=== PATIENT | male | born 1995 | race Caucasian/White ===

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

== ENCOUNTER 2017-05-04 16:19 | Emergency (ER) | payer MEDICAID, OTHER ==
[2017-05-04] MEDS ORDERED: predniSONE TAB* 20 MG PO ONE (18:41)
[2017-05-04] MEDS ORDERED: Albuterol 2.5 MG/3 ML NEB.SOL* (0.083%) INH ONE (18:41)
[2017-05-04] MEDS ORDERED: Acetaminophen TAB* 325 MG PO ONE (18:41)
--- NOTE | 2017-05-04 18:53 | UC ---
Respiratory Complaint HPI - HPI Summary HPI Summary: pt is c/o cough, chest congestion, tight lungs and a blood streak in his sputum after coughing today. began with a sore throat and nasal congestion for 1 day then moved to his chest. has hx of asthma and using rescue and steroid inhalers with no relief. denies cp, fever - History of Current Complaint Chief Complaint: UCRespiratory Stated Complaint: ASTHMA/TIGHTNESS IN CHEST/COUGHING UP BLOOD Time Seen by Provider: 05/04/17 18:37 Hx Obtained From: Patient Onset/Duration: Gradual Onset Pain Intensity: 0 Alleviating Factors: Nothing Associated Signs And Symptoms: Positive: Dyspnea, Wheezing, Hemoptysis - Risk Factors Pulmonary Embolism Risk Factors: Negative Cardiac Risk Factors: Negative Pseudomonas Risk Factors: Negative Tuberculosis Risk Factors: Negative - Allergies/Home Medications Allergies/Adverse Reactions: Allergies Allergy/AdvReac Type Severity Reaction Status Date / Time cefdinir Allergy Rash Verified 05/04/17 17:11 Sulfa (Sulfonamide Allergy Hives Verified 05/04/17 17:11 Antibiotics) Home Medications: Home Medications Albuterol HFA INHALER* [Ventolin HFA Inhaler*] 2 puff INH Q4H PRN 05/04/17 [ History Confirmed 05/04/17] Budesonide Flexhaler 90 (NF) [Pulmicort Flexhaler 90 mcg/act (NF)] 2 puff QAM [History Confirmed 05/04/17] PMH/Surg Hx/FS Hx/Imm Hx Respiratory History: Asthma - Surgical History Surgical History: Yes Surgery Procedure, Year, and Place: RT EAR SURGERY IN JANUARY 2012. YOUNG CHILD- TUBES PLACED X 2 - Family History Known Family History: Positive: Cardiac Disease - Social History Occupation: Student Lives: With Family Alcohol Use: None Substance Use Type: None Smoking Status (MU): Never Smoked Tobacco Have You Smoked in the Last Year: No - Immunization History Vaccination Up to Date: Yes Review of Systems Constitutional: Negative Skin: Negative Eyes: Negative ENT: Sore Throat, Nasal Discharge Respiratory: Shortness Of Breath, Cough Cardiovascular: Negative Gastrointestinal: Negative Genitourinary: Negative Motor: Negative Neurovascular: Negative Musculoskeletal: Negative Neurological: Negative Psychological: Negative Is Patient Immunocompromised?: No All Other Systems Reviewed And Are Negative: Yes Physical Exam Triage Information Reviewed: Yes Appearance: Well-Appearing Vital Signs: Initial Vital Signs Temp 98.3 F 05/04/17 17:13 Pulse 77 05/04/17 17:13 Resp 16 05/04/17 17:13 BP 110/67 05/04/17 17:13 Pulse Ox 99 05/04/17 17:13 Vital Signs Reviewed: Yes Eye Exam: Normal ENT: Positive: Pharynx normal, TMs normal. Negative: Nasal congestion, Nasal drainage Respiratory: Positive: No respiratory distress, Decreased breath sounds, Wheezing Cardiovascular: Positive: RRR, No Murmur Abdomen Description: Positive: Nontender, No Organomegaly, Soft Bowel Sounds: Positive: Present Musculoskeletal: Positive: ROM Intact Neurological: Positive: Alert Psychological: Positive: Age Appropriate Behavior Skin Exam: Normal UC Diagnostic Evaluation - Laboratory O2 Sat by Pulse Oximetry: 99 - Radiology Xray Interpretation: No Acute Changes Radiology Interpretation Completed By: Radiologist Re-Evaluation - Re-Evaluation Second Eval Re-Evaluation Time: 07:10 Change: Improved - LUNGS CLEAR WITH GOOD AERATION AND PT FEELING MUCH BETTER. Respiratory Course/Dx - Course Course Of Treatment: NON TOXIC, CXR UNREMARKABLE. I THINK BLLOD STREAK FROM COUGH AND BRONCHITIS. EXAM C/W ASTHMA FLARE WELL. WILL TX ALBUTEROL PLUS PREDNISONE WITH CLOSE F/U. - Differential Dx/Diagnosis Provider Diagnoses: Asthma flare. Bronchitis. Discharge - Sign-Out/Discharge Documenting (check all that apply): Discharge - Discharge Plan Condition: Improved Disposition: HOME Prescriptions: Albuterol HFA INHALER* [Ventolin HFA Inhaler*] 2 puff INH Q4H PRN 30 Days #1 mdi PRN Reason: Sob/Wheezing predniSONE TAB* [Deltasone TAB*] 40 mg PO DAILY 3 Days #6 tab Patient Education Materials: Asthma (ED), Acute Bronchitis (ED) Referrals: Dolores Navarro MD [Primary Care Provider] - 5 Days - Billing Disposition and Condition Condition: IMPROVED Disposition: HOME
--- NOTE | 2017-05-04 19:08 | RAD ---
INDICATION: Hemoptysis COMPARISON: Most recent comparison chest x-rays dated April 14, 2010 TECHNIQUE: PA and lateral views of the chest were obtained. FINDINGS: The heart and mediastinum are normal in size and contour. The lungs are grossly clear. There is no evidence of large pleural effusion. Visualized bones are normal for the patient's age. There is no radiographic evidence of free air beneath the diaphragm IMPRESSION: No radiographic evidence of acute cardiopulmonary disease.
[2017-05-04 19:28] VITALS: BP 124/63
== END 2017-05-04 19:27 | disposition home or self-care (01) ==
LOC: UCCORT 16:19
DX: J45.909 Unspecified asthma, uncomplicated (principal); Z88.2 Allergy status to sulfonamides; Z88.8 Allergy status to other drugs, medicaments and biological substances
CPT/HCPCS: 71046; 99213; A9270-GY; G0463; J7512

== ENCOUNTER → 2017-05-24 11:41 | Emergency (ER) | payer OTHER ==
[2017-05-24 12:32] VITALS: BP 129/73
--- NOTE | 2017-05-24 12:59 | RAD ---
INDICATION: Left ankle pain COMPARISON: None TECHNIQUE: AP, lateral, and oblique views were obtained. FINDINGS: The bony structures, joint spaces, and soft tissues are normal for age. IMPRESSION: NEGATIVE EXAMINATION.
--- NOTE | 2017-05-24 13:07 | ED ---
Lower Extremity - HPI Summary HPI Summary: 21 yr old male with the complaint of left ankle pain. Onset of pain after jumping of a couch and twisting his left ankle. he states he inverted the ankle when he landed. No other complaints. The injury occurred two days ago. He denies foot pain. Pain is localized to the lateral left ankle. - History of Current Complaint Chief Complaint: UCLowerExtremity Stated Complaint: LEFT ANKLE INJURY Time Seen by Provider: 05/24/17 12:34 Pain Intensity: 7 - Allergies/Home Medications Allergies/Adverse Reactions: Allergies Allergy/AdvReac Type Severity Reaction Status Date / Time cefdinir Allergy Rash Verified 05/24/17 12:24 Sulfa (Sulfonamide Allergy Hives Verified 05/24/17 12:24 Antibiotics) PMH/Surg Hx/FS Hx/Imm Hx Endocrine/Hematology History: Denies: Hx Diabetes, Hx Thyroid Disease Cardiovascular History: Denies: Hx Hypertension Respiratory History: Reports: Hx Asthma - INHALERS FOR Denies: Hx Chronic Obstructive Pulmonary Disease (COPD) GI History: Denies: Hx Ulcer Sensory History: Reports: Hx Contacts or Glasses - GLASSES Denies: Hx Hearing Aid Opthamlomology History: Reports: Hx Contacts or Glasses - GLASSES Neurological History: Reports: Hx Migraine - MOM STATES 2 x per month Comment Only: Other Neuro Impairments/Disorders - PAINFUL RIGHT EAR, DRAINING YELLOWISH-ORANISH COLOR-SM[place] - Surgical History Surgery Procedure, Year, and Place: RT EAR SURGERY IN JANUARY 2012. YOUNG CHILD- TUBES PLACED X 2 Hx Anesthesia Reactions: No Infectious Disease History: No Infectious Disease History: Denies: Hx Hepatitis, Hx Human Immunodeficiency Virus (HIV), Traveled Outside the [place] in Last 30 Days - Family History Known Family History: Positive: Cardiac Disease - Social History Occupation: Employed Part-time Alcohol Use: Occasionally Substance Use Type: Reports: None Smoking Status (MU): Never Smoked Tobacco Have You Smoked in the Last Year: No Review of Systems Constitutional: Negative Positive: Other - left ankle pain All Other Systems Reviewed And Are Negative: Yes Physical Exam Triage Information Reviewed: Yes Vital Signs On Initial Exam: Initial Vitals Temp Pulse Resp BP Pulse Ox 98.4 F 79 18 129/73 100 05/24/17 12:27 05/24/17 12:27 05/24/17 12:27 05/24/17 12:27 05/24/17 12:27 Vital Signs Reviewed: Yes Appearance: Positive: Well-Appearing, No Pain Distress Skin: Positive: Warm, Skin Color Reflects Adequate Perfusion Diagnostics - Vital Signs Vital Signs Temp Pulse Resp BP Pulse Ox 05/24/17 12:27 98.4 F 79 18 129/73 100 - Laboratory Lab Statement: Any lab studies that have been ordered have been reviewed, and results considered in the medical decision making process. - Radiology left ankle Xray Interpretation: No Acute Changes Radiology Interpretation Completed By: Radiologist Lower Extremity Course/Dx - Course Course Of Treatment: 21 yr old male with Left ankle sprain. DC home. - Diagnoses Provider Diagnoses: Ankle sprain Discharge - Sign-Out/Discharge Documenting (check all that apply): Discharge - Discharge Plan Condition: Good Disposition: HOME Prescriptions: Ibuprofen TAB* [Motrin TAB* 600 MG] 600 mg PO Q6H PRN #20 tab PRN Reason: Pain Patient Education Materials: Ankle Sprain (ED) Referrals: Dolores Navarro MD [Primary Care Provider] - 2 Days - Billing Disposition and Condition Condition: GOOD Disposition: HOME
== END | disposition home or self-care (01) ==
LOC: UCCORT 11:41
DX: S93.402A Sprain of unspecified ligament of left ankle, initial encounter (principal); Y93.39 Activity, other involving climbing, rappelling and jumping off; Y92.9 Unspecified place or not applicable; Z88.2 Allergy status to sulfonamides; Z88.8 Allergy status to other drugs, medicaments and biological substances
CPT/HCPCS: 99213; G0463

== ENCOUNTER 2018-05-06 13:29 | Emergency (ER) | payer OTHER ==
[2018-05-06 13:47] VITALS: BP 112/63
--- NOTE | 2018-05-06 14:02 | UC ---
Respiratory Complaint HPI - HPI Summary HPI Summary: cough x 2 days productive with yellow sputum , occasional blood , nasal congestion, pnd, no fever, no chills, no sob + wheezing - History of Current Complaint Chief Complaint: UCRespiratory Stated Complaint: CHEST CONGESTION Time Seen by Provider: 05/06/18 13:46 Hx Obtained From: Patient Onset/Duration: Gradual Onset, Lasting Days - 2, Still Present Timing: Constant Severity Initially: Moderate Severity Currently: Moderate Pain Intensity: 0 Character: Cough: Productive - yellow Aggravating Factors: Nothing Alleviating Factors: Nothing Associated Signs And Symptoms: Positive: Wheezing, URI, Nasal Congestion - Allergies/Home Medications Allergies/Adverse Reactions: Allergies Allergy/AdvReac Type Severity Reaction Status Date / Time cefdinir Allergy Rash Verified 05/06/18 13:48 Sulfa (Sulfonamide Allergy Hives Verified 05/06/18 13:48 Antibiotics) seasonal Allergy Congestion Uncoded 05/06/18 13:48 Home Medications: Home Medications Ibuprofen TAB* [Motrin TAB* 600 MG] 400 mg PO DAILY PRN 05/06/18 [History Confirmed 05/06/18] PMH/Surg Hx/FS Hx/Imm Hx Respiratory History: Asthma - Surgical History Surgical History: Yes Surgery Procedure, Year, and Place: RT EAR SURGERY IN JANUARY 2012. YOUNG CHILD- EarTUBES PLACED X 2 - Family History Known Family History: Positive: Cardiac Disease - Social History Alcohol Use: Occasionally Substance Use Type: None Smoking Status (MU): Never Smoked Tobacco Have You Smoked in the Last Year: No - Immunization History Vaccination Up to Date: Yes Review of Systems All Other Systems Reviewed And Are Negative: Yes Constitutional: Positive: Chills Skin: Positive: Negative Eyes: Positive: Negative ENT: Positive: Negative Respiratory: Positive: Cough Genitourinary: Positive: Negative Is Patient Immunocompromised?: No Physical Exam Triage Information Reviewed: Yes Appearance: Well-Appearing, No Pain Distress, Well-Nourished Vital Signs: Initial Vital Signs Temp 99.2 F 05/06/18 13:41 Pulse 82 05/06/18 13:41 Resp 18 05/06/18 13:41 BP 112/63 05/06/18 13:41 Pulse Ox 99 05/06/18 13:41 Vital Signs Reviewed: Yes Eye Exam: Normal Eyes: Positive: Conjunctiva Clear ENT: Positive: Normal ENT inspection, Hearing grossly normal, Pharynx normal Neck: Positive: Supple, Nontender, No Lymphadenopathy Respiratory: Positive: Chest non-tender, Wheezing Cardiovascular: Positive: RRR, No Murmur, Pulses Normal Skin Exam: Normal Respiratory Course/Dx - Differential Dx/Diagnosis Provider Diagnosis: URI (upper respiratory infection) Discharge - Sign-Out/Discharge Documenting (check all that apply): Patient Departure All imaging exams completed and their final reports reviewed: No Studies - Discharge Plan Condition: Stable Disposition: HOME Patient Education Materials: Upper Respiratory Infection (DC) Referrals: No Primary Care Phys,NOPCP [Primary Care Provider] - If Needed - Billing Disposition and Condition Condition: STABLE Disposition: Home
== END 2018-05-06 14:04 | disposition home or self-care (01) ==
LOC: UCCORT 13:29
DX: J06.9 Acute upper respiratory infection, unspecified (principal); J45.909 Unspecified asthma, uncomplicated; Z88.1 Allergy status to other antibiotic agents; Z88.2 Allergy status to sulfonamides; Z91.09 Other allergy status, other than to drugs and biological substances
CPT/HCPCS: 99211; G0463